=== PATIENT | male | born 1945 | race Caucasian/White ===

== ENCOUNTER 2017-07-07 18:59 | Inpatient (IN) | payer MEDICARE ==
[2017-07-07 19:59] LABS: Basophils % (A) 0 %; Eosinophils # (A) 0.2 k/uL (0-0.7); Eosinophils % (A) 4 %; HCT 48.2 % (39.0-53.0); HGB 16.4 gm/dL (13.0-17.5); Lymphocytes # (A) 1.8 k/uL (1.0-4.8); Lymphocytes % (A) 31 %; MCH 30.2 pg (25.0-35.0); MCV 88.6 fL (80.0-100.0); Mean Platelet Volume 7.1; Monocytes # (A) 0.5 k/uL (0-1.0); Monocytes % (A) 9 %; Neutrophils # (A) 2.9 k/uL (1.3-7.7); Neutrophils % (A) 51 %; Platelet Count 219 k/uL (150-450); RBC 5.44 m/uL (4.30-5.90); RDW 13.8 % (11.5-15.5); WBC 5.8 k/uL (3.8-10.6)
--- NOTE | 2017-07-07 20:12 | ED ---
General Adult HPI - General Chief complaint: Neuro Symptoms/Deficit Stated complaint: slurred speech Time Seen by Provider: 07/07/17 19:20 Source: patient, family, RN notes reviewed, old records reviewed Mode of arrival: ambulatory Limitations: no limitations - History of Present Illness Initial comments: 72-year-old male presents for evaluation of slurred speech. Symptoms began yesterday morning which was approximately 36 hours prior to evaluation. They have been persistent over this time. Patient didn't seek medical attention after being convinced by his family members. He has no history of TIA or stroke. He has history of high blood pressure. He does have a remote history of A. fib but has not had an issue with this in many years. He is not on any anticoagulation. Patient denies focal weakness or numbness. Denies any sensory changes. Denies vision changes. Denies headache. Denies chest pain or shortness of breath. Denies abdominal pain nausea vomiting. Patient has been doing well otherwise. - Related Data Home Medications Medication Instructions Recorded Confirmed Latanoprost Ophth [Xalatan 0.005%] 1 drops LEFT EYE HS 12/28/13 07/07/17 Metoprolol Succinate [Toprol XL] 25 mg PO HS 12/28/13 07/07/17 amLODIPine [Norvasc] 5 mg PO DAILY 12/28/13 07/07/17 Dorzolamide/Timolol/Pf [Cosopt Pf 1 drop LEFT EYE BID 07/07/17 07/07/17 2%/5% Ophth Droperette] Rosuvastatin [Crestor] 10 mg PO HS 07/07/17 07/07/17 Allergies Allergy/AdvReac Type Severity Reaction Status Date / Time venom-honey bee Allergy Severe Anaphylaxis Verified 07/07/17 19:30 [bee venom (honey bee)] Review of Systems ROS Statement: Those systems with pertinent positive or pertinent negative responses have been documented in the HPI. ROS Other: All systems not noted in ROS Statement are negative. Past Medical History Past Medical History: Atrial Fibrillation, GI Bleed, Hypertension Additional Past Medical History / Comment(s): A-fib past hx. Hemorrhoids sometimes bleed History of Any Multi-Drug Resistant Organisms: None Reported Past Surgical History: Hernia Repair Additional Past Surgical History / Comment(s): Lt & Right hernia repair Past Anesthesia/Blood Transfusion Reactions: No Reported Reaction Past Psychological History: No Psychological Hx Reported Smoking Status: Former smoker Past Alcohol Use History: Occasional Past Drug Use History: None Reported General Exam Limitations: no limitations General appearance: alert, in no apparent distress Head exam: Present: atraumatic, normocephalic Eye exam: Present: normal appearance, PERRL, EOMI ENT exam: Present: normal exam Neck exam: Present: normal inspection. Absent: tenderness, meningismus Respiratory exam: Present: normal lung sounds bilaterally. Absent: respiratory distress, wheezes Cardiovascular Exam: Present: regular rate, normal rhythm GI/Abdominal exam: Present: soft. Absent: distended, tenderness Extremities exam: Present: normal inspection, normal capillary refill. Absent: pedal edema Neurological exam: Present: alert, oriented X3, motor sensory deficit (Patient has dysarthria, NIH of 1.) Psychiatric exam: Present: normal affect, normal mood Skin exam: Present: warm, dry, intact. Absent: cyanosis, diaphoretic Course Vital Signs 07/07/17 07/07/17 19:07 20:10 Temperature 98.1 F Pulse Rate 67 70 Respiratory 16 18 Rate Blood Pressure 158/75 171/74 O2 Sat by Pulse 96 96 Oximetry EKG Findings - EKG Comments: EKG Findings:: EKG normal sinus rhythm rate of 67, ND interval 146, QRS duration 88, QTC 429 ST segment elevation. Medical Decision Making - Medical Decision Making 72-year-old male presenting with 36 hours of dysarthria. Patient's neurologic exam is otherwise unremarkable. Head CT is obtained, this is negative for intracranial hemorrhage, there is chronic small vessel ischemia. EKG nonischemic, chest x-ray is negative for focal pneumonia or acute findings. Laboratory studies include a CBC, CMP and troponin are unremarkable. Patient is given an aspirin. He will be admitted for echo, carotid ultrasound, and neurology evaluation. Case discussed with Dr. Leo, who will accept admission. - Lab Data Result diagrams: 07/07/17 19:43 07/07/17 19:43 Lab Results 07/07/17 07/07/17 07/07/17 Range/Units 19:43 19:43 19:43 WBC 5.8 (3.8-10.6) k/uL RBC 5.44 (4.30-5.90) m/uL Hgb 16.4 (13.0-17.5) gm/dL Hct 48.2 (39.0-53.0) % MCV 88.6 (80.0-100.0) fL MCH 30.2 (25.0-35.0) pg MCHC 34.0 (31.0-37.0) g/dL RDW 13.8 (11.5-15.5) % Plt Count 219 (150-450) k/uL Neutrophils % 51 % Lymphocytes % 31 % Monocytes % 9 % Eosinophils % 4 % Basophils % 0 % Neutrophils # 2.9 (1.3-7.7) k/uL Lymphocytes # 1.8 (1.0-4.8) k/uL Monocytes # 0.5 (0-1.0) k/uL Eosinophils # 0.2 (0-0.7) k/uL Basophils # 0.0 (0-0.2) k/uL Manual Slide Review Performed RBC Morphology Normal PT (9.0-12.0) sec INR (<1.2) APTT (22.0-30.0) sec Sodium 141 (137-145) mmol/L Potassium 3.4 L (3.5-5.1) mmol/L Chloride 101 (98-107) mmol/L Carbon Dioxide 25 (22-30) mmol/L Anion Gap 15 mmol/L BUN 19 (9-20) mg/dL Creatinine 0.91 (0.66-1.25) mg/dL Est GFR (CKD-EPI)AfAm >90 (>60 ml/min/1.73 sqM) Est GFR (CKD-EPI)NonAf 85 (>60 ml/min/1.73 sqM) Glucose 98 (74-99) mg/dL Calcium 9.6 (8.4-10.2) mg/dL Total Bilirubin 0.9 (0.2-1.3) mg/dL AST 31 (17-59) U/L ALT 30 (21-72) U/L Alkaline Phosphatase 81 (38-126) U/L Total Creatine Kinase 61 (55-170) U/L CK-MB (CK-2) 0.7 (0.0-2.4) ng/mL CK-MB (CK-2) Rel Index 1.1 Troponin I <0.012 (0.000-0.034) ng/mL Total Protein 7.5 (6.3-8.2) g/dL Albumin 4.6 (3.5-5.0) g/dL 07/07/17 Range/Units 19:43 WBC (3.8-10.6) k/uL RBC (4.30-5.90) m/uL Hgb (13.0-17.5) gm/dL Hct (39.0-53.0) % MCV (80.0-100.0) fL MCH (25.0-35.0) pg MCHC (31.0-37.0) g/dL RDW (11.5-15.5) % Plt Count (150-450) k/uL Neutrophils % % Lymphocytes % % Monocytes % % Eosinophils % % Basophils % % Neutrophils # (1.3-7.7) k/uL Lymphocytes # (1.0-4.8) k/uL Monocytes # (0-1.0) k/uL Eosinophils # (0-0.7) k/uL Basophils # (0-0.2) k/uL Manual Slide Review RBC Morphology PT 9.5 (9.0-12.0) sec INR 1.0 (<1.2) APTT 22.7 (22.0-30.0) sec Sodium (137-145) mmol/L Potassium (3.5-5.1) mmol/L Chloride (98-107) mmol/L Carbon Dioxide (22-30) mmol/L Anion Gap mmol/L BUN (9-20) mg/dL Creatinine (0.66-1.25) mg/dL Est GFR (CKD-EPI)AfAm (>60 ml/min/1.73 sqM) Est GFR (CKD-EPI)NonAf (>60 ml/min/1.73 sqM) Glucose (74-99) mg/dL Calcium (8.4-10.2) mg/dL Total Bilirubin (0.2-1.3) mg/dL AST (17-59) U/L ALT (21-72) U/L Alkaline Phosphatase (38-126) U/L Total Creatine Kinase (55-170) U/L CK-MB (CK-2) (0.0-2.4) ng/mL CK-MB (CK-2) Rel Index Troponin I (0.000-0.034) ng/mL Total Protein (6.3-8.2) g/dL Albumin (3.5-5.0) g/dL Critical Care Time Critical Care Time: Yes Total Critical Care Time: 35 Disposition Clinical Impression: Cerebrovascular accident Disposition: ADMITTED IP TO THIS [facility] Condition: Stable Is patient prescribed a controlled substance at d/c from ED?: No Referrals: Georgette Leo MD [Primary Care Provider] - 1-2 days Decision to Admit Reason: Admit from EC Decision Date: 07/07/17 Decision Time: 21:05
[2017-07-07 20:13] LABS: Partial Thromboplastin Time 22.7 sec (22.0-30.0); Prothrombin Time 9.5 sec (9.0-12.0)
[2017-07-07 20:16] LABS: ALT 30 U/L (21-72); AST 31 U/L (17-59); Albumin 4.6 g/dL (3.5-5.0); Alkaline Phosphatase 81 U/L (38-126); Anion Gap 15 mmol/L; Blood Urea Nitrogen 19 mg/dL (9-20); Calcium 9.6 mg/dL (8.4-10.2); Carbon Dioxide 25 mmol/L (22-30); Chloride 101 mmol/L (98-107); Glucose 98 mg/dL (74-99); Potassium 3.4 mmol/L (3.5-5.1); Sodium 141 mmol/L (137-145); Total Bilirubin 0.9 mg/dL (0.2-1.3); Total Protein 7.5 g/dL (6.3-8.2)
--- NOTE | 2017-07-07 20:16 | CT ---
EXAMINATION TYPE: CT brain wo con DATE OF EXAM: 07/07/2017 COMPARISON: NONE HISTORY: Neuro deficits. CT DLP: 1055.7 mGycm Automated exposure control for dose reduction was used. TECHNIQUE: CT scan of the head is performed without contrast. FINDINGS: There is no acute intracranial hemorrhage or midline shift identified. There is diffuse v entricular and sulcal prominence consistent with diffuse age-related cerebral atrophy. There is low- attenuation in the periventricular white matter consistent with chronic small vessel ischemic change. The globes are intact. There is moderate mucosal thickening within the ethmoid sinuses and severe m ucosal thickening within the left frontal sinuses. The remaining visualized paranasal sinuses and mas toid air cells are well aerated. IMPRESSION: 1. No acute intracranial hemorrhage or midline shift. 2. Severe left frontal and moderate ethmoid paranasal sinus disease..
--- NOTE | 2017-07-07 20:16 | XR ---
EXAMINATION TYPE: XR chest 2V DATE OF EXAM: 07/07/2017 COMPARISON: 09/20/2009 HISTORY: Altered mental status TECHNIQUE: Frontal and lateral views of the chest are obtained. FINDINGS: There is no focal air space opacity, pleural effusion, or pneumothorax seen. The cardiac silhouette size is within normal limits. The osseous structures are intact. Mild multilevel degener ative changes of the thoracic spine are noted. IMPRESSION: No acute cardiopulmonary process.
[2017-07-07] MEDS ORDERED: ASPIRIN 325 MG TAB PO STA (20:17)
[2017-07-07] MEDS ORDERED: POTASSIUM CHLORIDE ER 20 MEQ TAB.ER PO STA (20:18)
[2017-07-07 20:30] LABS: Creatine Kinase 61 U/L (55-170)
[2017-07-07 20:43] LABS: Creatine Kinase MB 0.7 ng/mL (0.0-2.4); Troponin I <0.012 ng/mL (0.000-0.034)
[2017-07-07] MEDS: SODIUM CHLORIDE 0.9% 1,000 ML IV SCH (21:17)
[2017-07-08] MEDS ORDERED: ATORVASTATIN 20 MG TAB PO SCH (00:15)
[2017-07-08] MEDS: METOPROLOL SUCCINATE (ER) 25 MG TAB.ER.24H PO SCH ×2 (01:33→20:07)
[2017-07-08 07:30] LABS: Anion Gap 13 mmol/L; Blood Urea Nitrogen 15 mg/dL (9-20); Calcium 8.8 mg/dL (8.4-10.2); Carbon Dioxide 24 mmol/L (22-30); Chloride 105 mmol/L (98-107); Cholesterol 184 mg/dL (<200); Glucose 100 mg/dL (74-99); HDL Cholesterol 64 mg/dL (40-60); LDL Cholesterol,Calculated 109 mg/dL (0-99); Potassium 4.4 mmol/L (3.5-5.1); Sodium 142 mmol/L (137-145); Triglycerides 55 mg/dL (<150)
--- NOTE | 2017-07-08 07:47 | US ---
EXAMINATION TYPE: US carotid duplex BILAT DATE OF EXAM: 07/08/2017 COMPARISON: NONE CLINICAL HISTORY: Stenosis. Slurred speech EXAM MEASUREMENTS: RIGHT: Peak Systolic Velocity (PSV) cm/sec ----- Right CCA: 84.2 ----- Right ICA: 108.9 ----- Right ECA: 145.6 ICA/CCA ratio: 1.3 RIGHT: End Diastole cm/sec ----- Right CCA: 21.7 ----- Right ICA: 33.3 ----- Right ECA: 15.6 LEFT: Peak Systolic Velocity (PSV) cm/sec ----- Left CCA: 83.8 ----- Left ICA: 90.5 ----- Left ECA: 96.8 ICA/CCA ratio: 1.1 LEFT: End Diastole cm/sec ----- Left CCA: 14.4 ----- Left ICA: 24.5 ----- Left ECA: 12.8 VERTEBRALS (direction of flow): Right Vertebral: Antegrade Left Vertebral: Antegrade Rhythm: Normal Grayscale images show no significant focal plaque at carotid bulb level bilaterally. Velocity measure ments and ratios remain within normal limits in visualized portion of both internal carotid arteries. IMPRESSION: No hemodynamically significant stenosis is seen in either internal carotid artery.
[2017-07-08] MEDS: SODIUM CHLORIDE 0.9% 1,000 ML IV SCH (08:38)
[2017-07-08] MEDS: amLODIPine 5 MG TAB PO SCH (08:38)
[2017-07-08] MEDS: DORZOLAMIDE-TIMOLOL 2-0.5% DROPS 10 ML BTL LEFT EYE SCH ×2 (08:39→20:05)
[2017-07-08] MEDS: ASPIRIN 325 MG TAB PO SCH (08:40)
--- NOTE | 2017-07-08 11:39 | ECHOF ---
Referral Reason:Thrombus MEASUREMENTS -------- HEIGHT: 177.8 cm WEIGHT: 77.1 kg BP: 137/77 RVIDd: 3.4 cm (< 3.3) IVSd: 0.9 cm (0.6 - 1.1) LVIDd: 4.2 cm (3.9 - 5.3) LVPWd: 1.1 cm (0.6 - 1.1) IVSs: 1.7 cm LVIDs: 2.7 cm LVPWs: 1.6 cm LA Diam: 3.6 cm (2.7 - 3.8) LAESV Index (A-L): 29.81 ml/m Ao Diam: 3.7 cm (2.0 - 3.7) AV Cusp: 2.0 cm (1.5 - 2.6) MV EXCURSION: 17.896 mm (> 18.000) MV EF SLOPE: 90 mm/s (70 - 150) EPSS: 0.5 cm MV E Diego: 0.92 m/s MV DecT: 153 ms MV A Diego: 0.71 m/s MV E/A Ratio: 1.30 RAP: 5.00 mmHg RVSP: 31.59 mmHg FINDINGS -------- Sinus rhythm. This was a technically good study. The left ventricular size is normal. Left ventricular wall thickness is normal. Overall left vent ricular systolic function is normal with, an EF between 60 - 65 %. The right ventricle is mildly enlarged. LA is midly dilated 29-33ml/m2. The right atrium is normal in size. The aortic valve is trileaflet and appears structurally normal. The mitral valve is normal. Mild tricuspid regurgitation present. Right ventricular systolic pressure is normal at < 35 mmHg. Trace/mild (physiologic) pulmonic regurgitation. The aortic root size is normal. Normal inferior vena cava with normal inspiratory collapse consistent with estimated right atrial pre ssure of 5 mmHg. There is no pericardial effusion. CONCLUSIONS -------- 1. Sinus rhythm. 2. This was a technically good study. 3. The left ventricular size is normal. 4. Left ventricular wall thickness is normal. 5. Overall left ventricular systolic function is normal with, an EF between 60 - 65 %. 6. The right ventricle is mildly enlarged. 7. LA is midly dilated 29-33ml/m2. 8. The right atrium is normal in size. 9. The aortic valve is trileaflet and appears structurally normal. 10. The mitral valve is normal. 11. Mild tricuspid regurgitation present. 12. Right ventricular systolic pressure is normal at < 35 mmHg. 13. Trace/mild (physiologic) pulmonic regurgitation. 14. The aortic root size is normal. 15. Normal inferior vena cava with normal inspiratory collapse consistent with estimated right atrial pressure of 5 mmHg. 16. There is no pericardial effusion. [employer]: Joseline Short RDCS
--- NOTE | 2017-07-08 13:20 | P.CNNES ---
History of Present Illness Consult date: 07/08/17 Reason for Consult: Patient admitted with speech impairment and possible TIA. History of Present Illness: This patient is a 72-year-old right-handed white male who was admitted to [facility] yesterday with symptoms of speech impairment. Apparently Tuesday of this past week he awoke and noticed that he was having difficulty with his speech and language. He describes it as a word finding difficulty. 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 Apparently on morning when he awoke he still noticed difficulty with his speech and language. He was having some features suggesting expressive aphasia. His family finally convinced him to go to the emergency room for further evaluation. His symptoms had been present for at least 36 hours prior to his evaluation in the ER and he was not a candidate for TPA. The patient was examined today in the emergency room as he is awaiting placement to [facility]. On further questioning the patient states his symptoms of speech impairment have significantly improved today. His daughter who was at bedside however notices he still is not 100% in terms of his speech prior to this event. The patient was sent for a computed tomography scan of the brain yesterday which revealed no acute intracranial hemorrhage or midline shift. There was evidence of left frontal sinusitis disease. The patient denies any previous history of TIA or stroke. He does not take aspirin on any regular basis as he has history of bleeding hemorrhoids. He has had difficulty with aspirin in the past. He does have a history of atrial fibrillation which occurred about 10-15 years ago. He was placed on Cardizem and apparently converted to normal sinus rhythm. It is unclear whether his recent episode may have been related to paroxysmal atrial fibrillation. He is currently on cardiac monitoring. So far he has been in normal sinus rhythm. The patient also has risk factor of hyperlipidemia. His total cholesterol has been elevated at 280. He was just recently started on Crestor about 6 weeks ago. Repeat lipid profile performed today reveals his total cholesterol to be 184 today. The patient states he has been in otherwise good health. He does follow with his primary care physician every 3-4 months. He has no recent history of smoking. The patient feels his language and speech is returned to normal however the daughter who was at bedside still feels he is showing some hesitation. His clinical history is suggesting possibility of left hemispheric TIA versus stroke. On his neurological examination in the ER he is noted to have slight dysmetria on finger-nose testing with his left hand. We have recommended the patient to be admitted to hospital for a complete stroke evaluation. We would recommend an MRI of the brain to be done for further assessment of possible acute left hemispheric stroke. The patient would like to hold off on aspirin as he does have history of bleeding hemorrhoids in the past. We will give further recommendations pending his MRI results. The patient denied any symptoms of motor weakness during this recent episode. He did not have any recent falls reported. He denies any headaches. He is now been admitted to the hospital and we are waiting bed assignment on this selective care floor. We have discussed all of his neurological findings in detail with the patient. He clearly understands our current diagnosis and treatment plan. We will have him admitted and we will continue close follow- up. Neurology is now been consulted for further evaluation and recommendations. Review of Systems Constitutional: Denies chills, Denies fever Eyes: denies blurred vision, denies pain Ears, nose, mouth and throat: Denies headache, Denies sore throat Cardiovascular: Denies chest pain, Denies shortness of breath Respiratory: Denies cough Gastrointestinal: Denies abdominal pain, Denies diarrhea, Denies nausea, Denies vomiting Musculoskeletal: Denies myalgias Integumentary: Denies pruritus, Denies rash Neurological: Reports aphasia, Reports change in speech, Denies numbness, Denies weakness Psychiatric: Denies anxiety, Denies depression Endocrine: Denies fatigue, Denies weight change Past Medical History Past Medical History: Atrial Fibrillation, Cancer, GI Bleed, Hyperlipidemia, Hypertension Additional Past Medical History / Comment(s): A-fib past hx,glaucoma, cataracts. 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 Hemorrhoids sometimes bleed History of Any Multi-Drug Resistant Organisms: None Reported Past Surgical History: Hernia Repair Additional Past Surgical History / Comment(s): Lt & Right inguinal hernia repair , colonoscpy/benign polys removed, mary laser eye sx for glaucoma, skin cancer removed from neck Past Anesthesia/Blood Transfusion Reactions: No Reported Reaction Smoking Status: Former smoker - Past Family History Father Family Medical History: Myocardial Infarction ([place]) Mother Additional Family Medical History / Comment(s): from old age Medications and Allergies Home Medications Medication Instructions Recorded Confirmed Type Latanoprost Ophth [Xalatan 0.005%] 1 drops LEFT EYE HS 12/28/13 07/07/17 History Metoprolol Succinate [Toprol XL] 25 mg PO HS 12/28/13 07/07/17 History amLODIPine [Norvasc] 5 mg PO DAILY 12/28/13 07/07/17 History Dorzolamide/Timolol/Pf [Cosopt Pf 1 drop LEFT EYE BID 07/07/17 07/07/17 History 2%/5% Ophth Droperette] Rosuvastatin [Crestor] 10 mg PO HS 07/07/17 07/07/17 History Allergies Allergy/AdvReac Type Severity Reaction Status Date / Time venom-honey bee Allergy Severe Anaphylaxis Verified 07/07/17 19:30 [bee venom (honey bee)] Physical Examination - Vital Signs Vital Signs: Vital Signs Temp Pulse Pulse Resp BP BP Pulse Ox 07/08/17 12:00 98.2 F 86 16 170/94 97 07/08/17 07:58 98.5 F 73 16 155/77 98 07/08/17 04:01 97.3 F L 89 16 133/77 97 07/08/17 00:01 81 07/08/17 00:00 97.1 F L 81 16 147/84 98 07/07/17 23:01 84 16 148/76 100 07/07/17 22:20 98.3 F 70 16 119/67 98 07/07/17 21:20 98.3 F 64 16 131/73 98 07/07/17 21:08 73 18 137/84 97 07/07/17 20:38 62 18 129/77 97 07/07/17 20:10 70 18 171/74 96 07/07/17 19:07 98.1 F 67 16 158/75 96 Intake and Output 07/07/17 07/08/17 07/08/17 22:59 06:59 14:59 Intake Total 200 1040 Output Total 600 Balance 200 440 Intake: Intake, IV Titration 200 800 Amount Sodium Chloride 0.9% 1, 200 800 000 ml @ 100 mls/hr IV . Q10H [facility] Rx#:[id number] Oral 240 Output: Urine 600 Other: Voiding Method Toilet Urinal Weight 77.111 kg - Constitutional General appearance: average body habitus, cooperative - EENT EENT: PERRL, mucous membranes moist - Respiratory Respiratory: lungs clear, normal breath sounds - Cardiovascular Cardiovascular: regular rate, normal S1, normal S2 Extremities: no peripheral edema bilaterally - Gastrointestinal Gastrointestinal: normoactive bowel sounds - Integumentary Integumentary: normal - Neurologic Cranial nerve examination: PERRL, EOMI, VFF, V1/V2/V3 grossly intact, face symmetric, tongue midline, intact gag reflex, intact corneal reflex, normal palatal elevation Speech examination: intact Sensorimotor examination: intact Detailed motor examination: grossly full strength in all extremities Motor examination - right side: 4/5: biceps, triceps, wrist flexion, wrist extension, sew out operator, hip flexors, knee extensors, dorsiflexion, toe extension (EHL) , plantarflexion Motor examination - left side: 4/5: biceps, triceps, wrist flexion, wrist extension, sew out operator, hip flexors, knee extensors, dorsiflexion, toe extension (EHL) , plantarflexion Detailed sensory examination: intact Reflex and gait examination: intact Reflexes: 1+: ankle, bicep, knee, tricep - Musculoskeletal Musculoskeletal: no pain - Psychiatric Psychiatric: mood/affect appropriate, cooperative Results - Laboratory Findings CBC and BMP: 07/07/17 19:43 07/08/17 06:48 Abnormal Lab Findings: Abnormal Labs 07/07/17 07/08/17 19:43 06:48 Potassium 3.4 L Glucose 100 H LDL Cholesterol, Calc 109 H HDL Cholesterol 64 H Assessment and Plan (1) TIA (transient ischemic attack) Current Visit: Yes Status: Acute Code(s): G45.9 - TRANSIENT CEREBRAL ISCHEMIC ATTACK, UNSPECIFIED SNOMED Code(s): 244066920 (2) Expressive aphasia Current Visit: Yes Status: Acute Code(s): R47.01 - APHASIA SNOMED Code(s) : 693951244 (3) Hyperlipidemia Current Visit: Yes Status: Acute Code(s): E78.5 - HYPERLIPIDEMIA, UNSPECIFIED SNOMED Code(s): 81297364 (4) Hypertension Current Visit: Yes Status: Acute Code(s): I10 - ESSENTIAL (PRIMARY) HYPERTENSION SNOMED Code(s): 59916315 Plan: This patient is a pleasant 72-year-old right-handed white male who was admitted to hospital yesterday for symptoms of slurred speech and word finding difficulties. He was symptomatic for over 36 hours before presenting to the emergency room yesterday. He was seen in the ER by Dr. Romo. He underwent a computed tomography scan of the brain which was reported negative for any evidence of acute stroke or hemorrhage. Neurology was consulted for further evaluation. Patient was seen today in the emergency room as he is awaiting room placement on the [facility] medical floor. We reviewed the results of his CAT scan with him in detail. His clinical history suggests possibility of left hemispheric TIA. He had a bout of expressive aphasia which has subsequently resolved. We have recommended he undergo a complete stroke evaluation including carotid Doppler ultrasound and echocardiogram. Carotid Doppler study was completed today and fails to reveal any significant carotid artery stenosis. Echocardiogram results are pending. We have recommended the patient to undergo an MRI of the brain for further evaluation to rule out acute stroke. The patient would like to hold off on aspirin at this time for secondary stroke prevention as he does have a history of bleeding hemorrhoids. We will await the results of his MRI of the brain and will reconsider further treatment pending the results. The patient's neurological examination otherwise is nonfocal. He does show slight dysmetria in the left finger nose testing. We will continue close monitoring of this patient during this admission. We'll await his MRI results and we'll give further recommendations at that time. Case was discussed at length with the patient. 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 His overall prognosis remains guarded. We will continue close neurological follow-up for this patient during this admission. Time with Patient: Greater than 30
--- NOTE | 2017-07-08 14:11 | P.HPIM ---
History of Present Illness H&P Date: 07/08/17 Chief Complaint: TIA/CVA. This is a 72-year-old male one of my patient with a previous medical history significant for hypertension and hypertensive cardio vascular disease, hyperlipidemia, patient was seen in my office about 6 weeks ago and it was recommended that time to go on the Crestor 10 mg orally once every day because of his hyperlipidemia and his total cholesterol was greater than 280 as a matter fact his repeated cholesterol at this presentation was 184 with LDL cholesterol of 108 and HDL cholesterol of 64 and a triglyceride of 55 which has improved quite a bit, patient presented to the emergency department at [facility] yesterday because of 2 day history of the dysarthria and finding the correct word that started on Tuesday and lasted all day Tuesday woke up on and he felt that he is getting worse with his daughter convinced him to come to the emergency department at [facility] where he had a computed tomography scan of the brain that showed no evidence of significant stroke or bleed or midline shift did show some sinus disease, and the patient was given aspirin 325 mg orally once every day, underwent ultrasound of the carotid and echocardiogram which failed to reveal any acute of normalities, patient reported that he had an episode of atrial fibrillation many years ago for which she was placed on Cardizem and he was converted sinus rhythm and he was not taking any anticoagulation at that point because he had remained in sinus rhythm. Patient was placed on a monitor his currently in sinus rhythm without any acute abnormalities, patient will be admitted to the hospital for acute stroke evaluation mainly TIA of the left middle cerebral artery, neurology has seen the patient over the recommended MRI of the brain with and without CAD, patient will be seen and evaluated by physical therapy as well as by speech therapy as well his symptoms has resolved completely at this point in time I have recommended for the patient to increase his Crestor to 20 mg orally once every day and continue aspirin 325 mg orally indefinitely and the patient will need to have a 30 day event monitor to rule out any paroxysmal atrial fibrillation and if the MRI is positive he may need to go for a transesophageal echocardiogram for evaluation of PFO versus any thrombus. Review of Systems Constitutional: Denies anorexia, Denies chronic headaches, Denies weakness, Denies weight gain Eyes: denies blurred vision, denies bulging eye, denies decreased vision Ears: deny: decreased hearing Ears, nose, mouth and throat: Reports as per HPI, Denies dysphagia, Denies neck lump Cardiovascular: Reports high blood pressure, Denies chest pain, Denies decreased exercise tolerance, Denies dyspnea on exertion, Denies paroxysmal nocturnal dyspnea, Denies phlebitis, Denies rapid heart beat, Denies shortness of breath, Denies syncope Respiratory: Denies congestion, Denies cough with sputum, Denies home oxygen, Denies sleep apnea, Denies snoring, Denies wheezing Gastrointestinal: Denies abdominal pain, Denies BRBPR, Denies excessive gas, Denies heartburn, Denies melena, Denies nausea, Denies vomiting Genitourinary: Denies dysuria, Denies nocturia, Denies polyuria Musculoskeletal: Reports as per HPI Musculoskeletal: absent: ankle pain, ankle stiffness, ankle swelling, elbow pain , elbow stiffness, elbow swelling, foot pain, foot stiffness, foot swelling, hand pain, hand stiffness, hand swelling, hip pain, hip stiffness, hip swelling , knee pain, knee stiffness, knee swelling, shoulder pain, shoulder stiffness, shoulder swelling, wrist pain, wrist stiffness, wrist swelling Integumentary: Denies pruritus, Denies rash Neurological: Reports as per HPI Psychiatric: Denies anxiety, Denies depression Endocrine: Denies fatigue, Denies weight change Past Medical History Past Medical History: Atrial Fibrillation, Cancer, GI Bleed, Hyperlipidemia, Hypertension, Osteoarthritis (OA), Prostate Disorder Additional Past Medical History / Comment(s): A-fib past hx,glaucoma, cataracts. 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 Hemorrhoids sometimes bleed History of Any Multi-Drug Resistant Organisms: None Reported Past Surgical History: Hernia Repair Additional Past Surgical History / Comment(s): Lt & Right inguinal hernia repair , colonoscpy/benign polys removed, mary laser eye sx for glaucoma, skin cancer removed from neck Past Anesthesia/Blood Transfusion Reactions: No Reported Reaction Smoking Status: Former smoker (patient started smoking at the age of 17 and he quit at the age of 21 he smoked less than a pack every day and he drinks one mixed drink on a daily basis.) Past Alcohol Use History: Daily Past Drug Use History: None Reported - Past Family History Father Family Medical History: Myocardial Infarction (MA) (father at age 68 from MA. And his first MA was at the age of 58.) Mother Family Medical History: No Reported History (mother at age 91 from old age. ) Additional Family Medical History / Comment(s): from old age Sister(s) Family Medical History: Cancer (patient had 2 sisters one from leukemia about 3 years ago and one is okay.) Daughter(s) Family Medical History: No Reported History (patient has 2 daughters one with a spontaneous pneumothorax and the other one healthy.) Medications and Allergies Home Medications Medication Instructions Recorded Confirmed Type Latanoprost Ophth [Xalatan 0.005%] 1 drops LEFT EYE HS 12/28/13 07/07/17 History Metoprolol Succinate [Toprol XL] 25 mg PO HS 12/28/13 07/07/17 History amLODIPine [Norvasc] 5 mg PO DAILY 12/28/13 07/07/17 History Dorzolamide/Timolol/Pf [Cosopt Pf 1 drop LEFT EYE BID 07/07/17 07/07/17 History 2%/5% Ophth Droperette] Rosuvastatin [Crestor] 10 mg PO HS 07/07/17 07/07/17 History Allergies Allergy/AdvReac Type Severity Reaction Status Date / Time venom-honey bee Allergy Severe Anaphylaxis Verified 07/07/17 19:30 [bee venom (honey bee)] Physical Exam Vitals: Vital Signs Temp Pulse Pulse Resp BP BP Pulse Ox 07/08/17 12:00 98.2 F 86 16 170/94 97 07/08/17 07:58 98.5 F 73 16 155/77 98 07/08/17 04:01 97.3 F L 89 16 133/77 97 07/08/17 00:01 81 07/08/17 00:00 97.1 F L 81 16 147/84 98 07/07/17 23:01 84 16 148/76 100 07/07/17 22:20 98.3 F 70 16 119/67 98 07/07/17 21:20 98.3 F 64 16 131/73 98 07/07/17 21:08 73 18 137/84 97 07/07/17 20:38 62 18 129/77 97 07/07/17 20:10 70 18 171/74 96 07/07/17 19:07 98.1 F 67 16 158/75 96 Intake and Output 07/07/17 07/08/17 07/08/17 22:59 06:59 14:59 Intake Total 200 1040 Output Total 600 Balance 200 440 Intake: Intake, IV Titration 200 800 Amount Sodium Chloride 0.9% 1, 200 800 000 ml @ 100 mls/hr IV . Q10H [facility] Rx#:[id number] Oral 240 Output: Urine 600 Other: Voiding Method Toilet Urinal Weight 77.111 kg - Constitutional General appearance: average body habitus, no acute distress - EENT Eyes: anicteric sclerae, EOMI, PERRLA, no ptosis, no scleral icterus, no normal appearance (mild right-sided facial weakness.) Ears: bilateral: normal - Neck Neck: no lymphadenopathy, normal ROM, no rigidity, no stridor, no thyromegaly Carotids: bilateral: upstroke normal Thyroid: bilateral: normal size - Respiratory Respiratory: bilateral: diminished, negative: dullness, rales, rhonchi, wheezing , prolonged expiration - Cardiovascular Rhythm: regular Heart sounds: normal: S1, S2 Abnormal Heart Sounds: systolic murmur, no rub, no S3 Gallop, no S4 Gallop, no click - Gastrointestinal General gastrointestinal: normal bowel sounds, soft, no splenomegaly, no tenderness, no umbilical hernia, no ventral hernia - Integumentary Integumentary: normal, normal turgor - Musculoskeletal Musculoskeletal: strength equal bilaterally (Babinski on the right side is abnormal, deep tendon or flexes in the right is hyper without any clonus, minimal right-sided facial droop.) - Psychiatric Psychiatric: A&O x's 3, appropriate affect, intact judgment & insight Results CBC & Chem 7: 07/07/17 19:43 07/08/17 06:48 Labs: Abnormal Lab Results - Last 24 Hours (Table) 07/07/17 07/08/17 Range/Units 19:43 06:48 Potassium 3.4 L (3.5-5.1) mmol/L Glucose 100 H (74-99) mg/dL LDL Cholesterol, Calc 109 H (0-99) mg/dL HDL Cholesterol 64 H (40-60) mg/dL Thrombosis Risk Factor Assmnt - DVT/VTE Prophylaxis DVT/VTE Prophylaxis: Pharmacologic Prophylaxis ordered, Mechanical Prophylaxis ordered - Choose All That Apply Other Risk Factors: Yes Each Risk Factor Represents 2 Points: Age 61-74 years Thrombosis Risk Factor Assessment Total Risk Factor Score: 2 Thrombosis Risk Factor Assessment Level: Low Risk Assessment and Plan Assessment: Assessment and plan: 1. Acute CVA and the discretion of the left middle cerebral artery with mild right-sided facial weakness with dysarthria. Echocardiogram and ultrasound of the carotids were reviewed, MRI of the brain was ordered, continue aspirin 325 mg orally once every day, continue Lipitor 40 mg orally once every day, homocysteine level was ordered, patient will be seen and evaluated by physical therapy, speech therapy, patient will need to have an event monitor for 30 days , patient will need to have transesophageal echocardiogram for evaluation of PFO and to check the aortic arch. 2. Hypertension and hypertensive cardiovascular disease. Continue metoprolol 25 mg orally twice every day and amlodipine 10 mg orally once every day. 3. Hyperlipidemia. Continue patient on Lipitor 40 mg orally once every day. 4. Chronic alcohol use and dependence patient was counseled about abstinence from alcohol. 5. History of atrial fibrillation in the past. 30 day event monitor as an outpatient keep the patient on monitor for the next 24 hours, await the result of MRI of the brain. 6. History of basal cell cancer. Stable at this point in time. 7. History of GI bleed due to hemorrhoids. Stable at this time. 8. History of diverticulosis. Stable at this point in time. 9. DVT prophylaxis. Lovenox 40 mg subcutaneously every 24 hours along with bilateral SCDs. 10. GI prophylaxis. Protonix 40 mg orally once every day. 11. Patient is a full code. 12. Admit to inpatient. Estimate a length of stay 2 midnights.
[2017-07-08] MEDS ORDERED: LATANOPROST 0.005% OPHTH DROPS 2.5 ML BTL LEFT EYE SCH (21:00)
[2017-07-08] MEDS ORDERED: ATORVASTATIN 40 MG TAB PO SCH (21:00)
[2017-07-09 06:54] LABS: Basophils % (A) 0 %; Eosinophils # (A) 0.2 k/uL (0-0.7); Eosinophils % (A) 3 %; HCT 46.6 % (39.0-53.0); HGB 15.3 gm/dL (13.0-17.5); Lymphocytes # (A) 1.4 k/uL (1.0-4.8); Lymphocytes % (A) 25 %; MCH 29.7 pg (25.0-35.0); MCHC 32.8 g/dL (31.0-37.0); MCV 90.6 fL (80.0-100.0); Mean Platelet Volume 7.3; Monocytes # (A) 0.5 k/uL (0-1.0); Monocytes % (A) 10 %; Neutrophils # (A) 3.2 k/uL (1.3-7.7); Neutrophils % (A) 58 %; Platelet Count 214 k/uL (150-450); RBC 5.14 m/uL (4.30-5.90); RDW 13.8 % (11.5-15.5); WBC 5.6 k/uL (3.8-10.6)
[2017-07-09 07:25] LABS: ALT 28 U/L (21-72); AST 24 U/L (17-59); Albumin 3.7 g/dL (3.5-5.0); Alkaline Phosphatase 69 U/L (38-126); Anion Gap 11 mmol/L; Blood Urea Nitrogen 15 mg/dL (9-20); Carbon Dioxide 26 mmol/L (22-30); Chloride 104 mmol/L (98-107); Glucose 101 mg/dL (74-99); Potassium 4.3 mmol/L (3.5-5.1); Sodium 141 mmol/L (137-145); Total Bilirubin 1.2 mg/dL (0.2-1.3); Total Protein 6.2 g/dL (6.3-8.2)
[2017-07-09] MEDS ORDERED: PANTOPRAZOLE 40 MG TABLET PO SCH (07:30)
[2017-07-09] MEDS: DORZOLAMIDE-TIMOLOL 2-0.5% DROPS 10 ML BTL LEFT EYE SCH (08:09)
[2017-07-09] MEDS: amLODIPine 5 MG TAB PO SCH (08:09)
[2017-07-09] MEDS: ASPIRIN 325 MG TAB PO SCH (08:09)
[2017-07-09] MEDS ORDERED: ENOXAPARIN 40 MG/0.4 ML SYRINGE SQ SCH (09:00)
[2017-07-09 09:41] VITALS: TEMP 97.8
--- NOTE | 2017-07-09 10:06 | P.DS ---
Providers Date of admission: 07/07/17 21:05 Attending physician: Georgette Leo Consults: 07/07/17 21:02 Consult Physician Routine Consulting Provider: Elaine Hanson Consult Reason/Comments: CVA Do you want consulting provider notified?: Yes Primary care physician: Georgette Leo [facility] Course: This is a 72-year-old male one of my patient with a previous medical history significant for hypertension and hypertensive cardio vascular disease, hyperlipidemia, patient was seen in my office about 6 weeks ago and it was recommended that time to go on the Crestor 10 mg orally once every day because of his hyperlipidemia and his total cholesterol was greater than 280 as a matter fact his repeated cholesterol at this presentation was 184 with LDL cholesterol of 108 and HDL cholesterol of 64 and a triglyceride of 55 which has improved quite a bit, patient presented to the emergency department at [facility] yesterday because of 2 day history of the dysarthria and finding the correct word that started on Tuesday and lasted all day Tuesday woke up on and he felt that he is getting worse with his daughter convinced him to come to the emergency department at [facility] where he had a computed tomography scan of the brain that showed no evidence of significant stroke or bleed or midline shift did show some sinus disease, and the patient was given aspirin 325 mg orally once every day, underwent ultrasound of the carotid and echocardiogram which failed to reveal any acute of normalities, patient reported that he had an episode of atrial fibrillation many years ago for which she was placed on Cardizem and he was converted sinus rhythm and he was not taking any anticoagulation at that point because he had remained in sinus rhythm. Patient was placed on a monitor his currently in sinus rhythm without any acute abnormalities, patient will be admitted to the hospital for acute stroke evaluation mainly TIA of the left middle cerebral artery, neurology has seen the patient over the recommended MRI of the brain with and without CAD, patient will be seen and evaluated by physical therapy as well as by speech therapy as well his symptoms has resolved completely at this point in time I have recommended for the patient to increase his Crestor to 20 mg orally once every day and continue aspirin 325 mg orally indefinitely and the patient will need to have a 30 day event monitor to rule out any paroxysmal atrial fibrillation and if the MRI is positive he may need to go for a transesophageal echocardiogram for evaluation of PFO versus any thrombus. 07/09: Patient was evaluated this morning. Dysarthria has improved, although he states he's still having slight trouble finding word. He denies any weakness, numbness, tingling, or headache. Patient underwent echocardiogram shows ejection fraction between 60-65 % and mild tricuspid regurgitation. Carotid Doppler showed no significant stenosis in either internal carotid artery. Patient is currently awaiting MRI, if clear patient will be discharged home, will need to follow-up with cardiology to either have loop monitor or 30 day event monitor placed. He'll start 325 mg enteric-coated aspirin at home, will watch for signs of bleeding due to his history of hemorrhoids. Discharge diagnoses 1. Acute CVA and the discretion of the left middle cerebral artery with mild right-sided facial weakness with dysarthria. Patient will need to have an event monitor for 30 days. 2. Hypertension and hypertensive cardiovascular disease. 3. Hyperlipidemia. 4. Chronic alcohol use and dependence. 5. History of atrial fibrillation in the past. 6. History of basal cell cancer. 7. History of GI bleed due to hemorrhoids. 8. History of diverticulosis. The above impression and plan of care have been discussed and directed by signing physician. Anna Voss nurse practitioner acting as scribe for signing physician. Patient Condition at Discharge: Good Plan - Discharge Summary Discharge Rx Participant: No New Discharge Prescriptions: New Aspirin 325 mg PO DAILY tab Continue Metoprolol Succinate [Toprol XL] 25 mg PO HS Latanoprost Ophth [Xalatan 0.005%] 1 drops LEFT EYE HS Dorzolamide/Timolol/Pf [Cosopt Pf 2%/5% Ophth Droperette] 1 drop LEFT EYE BID Rosuvastatin [Crestor] 10 mg PO HS Changed amLODIPine [Norvasc] 10 mg PO DAILY #0 Discharge Medication List Latanoprost Ophth [Xalatan 0.005%] 1 drops LEFT EYE HS 12/28/13 [History] Metoprolol Succinate [Toprol XL] 25 mg PO HS 12/28/13 [History] Dorzolamide/Timolol/Pf [Cosopt Pf 2%/5% Ophth Droperette] 1 drop LEFT EYE BID [History] Rosuvastatin [Crestor] 10 mg PO HS 07/07/17 [History] Aspirin 325 mg PO DAILY tab 07/09/17 [Rx] amLODIPine [Norvasc] 10 mg PO DAILY #0 07/09/17 [Rx] Follow up Appointment(s)/Referral(s): Kathy Hanson MD [STAFF PHYSICIAN] - 1 Week Georgette Leo MD [Primary Care Provider] - 1-2 days Discharge Disposition: HOME SELF-CARE
--- NOTE | 2017-07-09 12:23 | MR ---
EXAMINATION TYPE: MR brain wo/w con DATE OF EXAM: 07/09/2017 12:12 PM COMPARISON: Previous CT scan of the brain dated 07/07/2017. HISTORY: Slurred speech TECHNIQUE: Multiplanar, multiecho imaging of the brain was obtained with and without intravenous adm inistration of 7.5 mL intravenous Gadavist. FINDINGS: There is sinus mucosal disease involving the frontal sinuses, ethmoid sinuses and left maxi llary sinus. Midline structures are unremarkable. There is a normal craniocervical junction. Echoplanar diffusion imaging demonstrates restricted diffusion in the left side of the eliu. There is corresponding high signal on the T2 and FLAIR datasets in this region suggesting a recent infarct. D iffusion imaging is otherwise normal. There are normal vascular flow voids. The orbits are unremarkable. There is no evidence of a CP angle mass lesion. There is punctate abnormalities in the FLAIR dataset in both cerebral hemispheres compatible with sma ll vessel disease. Other forms of demyelination are not excluded. Following intravenous administration of gadolinium, I do not see evidence of abnormal enhancement. IMPRESSION: 1. EVIDENCE OF AN SUBACUTE INFARCT IN THE LEFT SIDE OF THE ELIU. 2. PUNCTATE PERIVENTRICULAR WHITE MATTER CHANGE COMPATIBLE SMALL VESSEL DISEASE. 3. FRONTAL, ETHMOIDAL AND LEFT MAXILLARY SINUS MUCOSAL DISEASE.
[2017-07-09 12:54] VITALS: BP 155/84; PULSE 69; RESP 15
--- NOTE | 2017-07-09 15:38 | P.PN ---
Subjective Progress Note Date: 07/09/17 This patient is a pleasant 72-year-old right-handed white male who was seen yesterday neurology consultation for evaluation of episode of dysarthria and mild word finding difficulties. His symptoms persisted for over 86 hours and he decided to come to the emergency room yesterday where he was evaluated. He underwent an initial computed tomography scan of the brain which was negative for any acute findings. He was advised admission to the hospital and to have an MRI of the brain. Patient underwent laboratory testing to check his lipid profile. His total serum cholesterol came back today at 184. He was started on Crestor about 6 weeks ago and prior to that and had a total cholesterol greater than 280. The patient was able to complete a carotid Doppler study which revealed no significant carotid artery stenosis. He underwent an echocardiogram which showed an ejection fraction between 60-65% with mild tricuspid regurgitation. The patient was able to complete MRI of the brain today. His MRI of the brain results indicate evidence of a subacute infarct in the left simin. Punctate white matter changes were noted reflecting small vessel disease as well. We did review the results of the MRI of the brain today with the patient. Patient is being considered for discharge home today. He is to be considered for possible ALEXANDRE procedure which may be arranged for him as outpatient. Patient may follow-up in the outpatient neurology clinic in 2-3 weeks. Objective - Vital Signs Vital signs: Vital Signs Temp 97.8 F 07/09/17 08:00 Pulse 69 07/09/17 12:00 Resp 15 07/09/17 12:00 BP 155/84 07/09/17 12:00 Pulse Ox 95 07/09/17 12:00 Intake & Output 07/08/17 07/09/17 07/09/17 18:59 06:59 18:59 Intake Total 1640 360 Output Total 600 Balance 1040 360 Weight 74.9 kg Intake: Intake, IV Titration 1400 Amount Sodium Chloride 0.9% 1, 1400 000 ml @ 100 mls/hr IV . Q10H [facility] Rx#:[id number] Oral 240 360 Output: Urine 600 Other: Voiding Method Toilet Toilet Urinal Urinal # Voids 1 1 1 # Bowel Movements 0 - Exam Physical examination: PHYSICAL EXAMINATION: Patient is resting comfortably in bed. VITAL SIGNS: Blood pressure is [155/84]. Heart rate is [69]. Respiration is [15] . Temperature is [97.7]. HEENT: Head is atraumatic, neck is supple, there were no carotid bruits. CHEST: Lungs are clear to auscultation and percussion. CARDIAC: S1, S2 normal rate and rhythm. There is no murmur. ABDOMEN: Soft and nontender. Bowel sounds are present. EXTREMITIES: There is no pedal edema. Peripheral pulses are present. Neurological examination: Patient has a nonfocal neurological examination today. - Labs CBC & Chem 7: 07/09/17 06:12 07/09/17 06:12 Labs: Abnormal Lab Results - Last 24 Hours (Table) 07/09/17 Range/Units 06:12 Glucose 101 H (74-99) mg/dL Total Protein 6.2 L (6.3-8.2) g/dL Assessment and Plan (1) TIA (transient ischemic attack) Status: Acute Code(s): G45.9 - TRANSIENT CEREBRAL ISCHEMIC ATTACK, UNSPECIFIED SNOMED Code(s): 404056437 (2) Expressive aphasia Status: Acute Code(s): R47.01 - APHASIA SNOMED Code(s): 248709447 (3) Hyperlipidemia Status: Acute Code(s): E78.5 - HYPERLIPIDEMIA, UNSPECIFIED SNOMED Code(s): 88648544 (4) Hypertension Status: Acute Code(s): I10 - ESSENTIAL (PRIMARY) HYPERTENSION SNOMED Code(s) : 24839708 Plan: This patient is a pleasant 72-year-old male who was admitted yesterday with episode of dysarthric speech. He was able to complete MRI of the brain today which was reviewed and reveals evidence of a subacute infarction in the left simin. Patient is advised to continue on aspirin therapy 325 mg daily for secondary stroke prevention. His stroke risk factors include hypertension and hyperlipidemia. His most recent total cholesterol was 184. We suggest he continue to follow closely with his primary care physician for monitoring of his lipid panel as well as his blood pressure readings. He is being considered for discharge home today and may be scheduled for ALEXANDRE procedures outpatient. He may follow-up in the outpatient neurology clinic in 2-3 weeks. So overall prognosis at this time remains fair.
== END 2017-07-09 14:40 | disposition home or self-care (01) | DRG 66 ==
LOC: EC 18:59 → 6SEL 21:05
PROVIDERS: ADMIT Internal Medicine; ATTEND Internal Medicine
DX: I63.9 Cerebral infarction, unspecified (principal); R47.01 Aphasia; I07.1 Rheumatic tricuspid insufficiency; I11.9 Hypertensive heart disease without heart failure; R29.810 Facial weakness; R47.1 Dysarthria and anarthria; R40.2362 Coma scale, best motor response, obeys commands, at arrival to emergency department; R40.2142 Coma scale, eyes open, spontaneous, at arrival to emergency department; R40.2252 Coma scale, best verbal response, oriented, at arrival to emergency department; R29.701 NIHSS score 1; E78.5 Hyperlipidemia, unspecified; I73.9 Peripheral vascular disease, unspecified; M19.91 Primary osteoarthritis, unspecified site; N42.9 Disorder of prostate, unspecified; H40.9 Unspecified glaucoma; K57.90 Diverticulosis of intestine, part unspecified, without perforation or abscess without bleeding; K64.9 Unspecified hemorrhoids; J32.1 Chronic frontal sinusitis; Z79.899 Other long term (current) drug therapy; Z86.79 Personal history of other diseases of the circulatory system; Z85.828 Personal history of other malignant neoplasm of skin; Z87.891 Personal history of nicotine dependence; Z72.89 Other problems related to lifestyle; Z91.030 Bee allergy status; Z82.49 Family history of ischemic heart disease and other diseases of the circulatory system; Z80.6 Family history of leukemia
CPT/HCPCS: 36415; 70450; 70553; 71046; 80048; 80053; 80061; 82550; 82553; 83090; 84484; 85025; 85610; 85652; 85730; 93005; 93306; 93880; 99291

== ENCOUNTER → 2017-07-20 | Outpatient (CLI) | payer MEDICARE | END | disposition home or self-care (01) | LOC: RADECHMAIN 11:28 | PROVIDERS: ATTEND Internal Medicine | DX: I47.1 Supraventricular tachycardia (principal); I49.3 Ventricular premature depolarization | CPT/HCPCS: 93270; 93271 ==

== ENCOUNTER → 2020-05-08 | Outpatient (CLI) | payer MEDICARE ==
[2020-05-08 12:57] LABS: Appearance,Urine Clear (Clear); Bilirubin,Urine Negative (Negative); Blood,Urine Negative (Negative); Color,Urine Yellow; Glucose,Urine (UA) Negative (Negative); Ketones,Urine Negative (Negative); Leukocyte Esterase,Urine Negative (Negative); Nitrite,Urine Negative (Negative); PH, Urine 5.5 (5.0-8.0); Protein,Urine Trace (Negative); Specific Gravity,Urine 1.024 (1.001-1.035); Urobilinogen,Urine <2.0 mg/dL (<2.0)
[2020-05-08 15:14] LABS: WBC 7.69 X 10*3/uL (4.50-10.00)
[2020-05-08 15:15] LABS: HCT 41.8 % (39.6-50.0); MCH 30.6 pg (27.0-32.0); MCHC 33.5 g/dL (32.0-37.0); MCV 91.5 fL (80.0-97.0); Platelet Count 338 X 10*3/uL (140-440); RBC 4.57 X 10*6/uL (4.40-5.60); RDW 12.1 % (11.5-14.5)
[2020-05-08 15:27] LABS: INR 0.91 (0.90-1.11); Partial Thromboplastin Time 28.8 sec (23.5-31.0)
[2020-05-09 02:17] LABS: African American GFR (CKD) 86.2 (60.0-200.0); Albumin 4.1 g/dL (3.80-4.90); Albumin/Globulin Ratio 1.71 (1.60-3.17); Anion Gap 10.7 mmol/L (4.00-12.00); Calcium 9.5 mg/dL (8.7-10.3); Carbon Dioxide 26.3 mmol/L (21.6-31.8); Globulin 2.4 g/dL (1.6-3.3); Non-African American GFR(CKD) 74.3 (60.0-200.0); Potassium 4.2 mmol/L (3.5-5.5); Total Bilirubin 0.8 mg/dL (0.3-1.2); Total Protein 6.5 g/dL (6.2-8.2)
== END | disposition home or self-care (01) ==
LOC: LABWHC1 09:06
PROVIDERS: ATTEND Orthopaedic Surgery
DX: Z01.818 Encounter for other preprocedural examination (principal); Z01.812 Encounter for preprocedural laboratory examination; M13.859 Other specified arthritis, unspecified hip
CPT/HCPCS: 36415; 80053; 81003; 85027; 85610; 85730; 86850; 86900; 86901; 87070

== ENCOUNTER 2020-05-20 07:38 | Day surgery (SDC) | payer MEDICARE ==
[2020-05-16 10:43] VITALS: BMI 22.1
[~2020-05-20 07:38] MED LIST: ACETAMINOPHEN TAB 500 MG TAB PO PRN; DEXAMETHASONE SOD PHOSPHATE 4 MG/ML 1 ML VIAL IV ONE; GABAPENTIN 300 MG CAP PO PRN; HYDROcodone/APAP 7.5-325MG 1 EACH TAB PO PRN; HYDROmorphone 0.2 MG/1 ML SYRINGE IVP PRN; HYDROmorphone 0.5 MG/0.5 ML SYRINGE IVP PRN; LACTATED RINGERS 1,000 ML IV SCH; LIDOCAINE 1% (10MG/ML) FOR IV START INTRADERMA PRN; MELOXICAM 7.5 MG TAB PO PRN; MIDAZOLAM 2 MG/2 ML VIAL IV PRN; NALOXONE 0.4 MG/ML 1 ML VIAL IV PRN; ONDANSETRON 4 MG/2 ML VIAL IVP ONE; ONDANSETRON 4 MG/2 ML VIAL IVP PRN; SODIUM CHLORIDE 0.9% 1,000 ML IV SCH; TRANEXAMIC ACID 1,000 MG in SODIUM CHLORIDE 0.9% 100 ML IVPB PRN
[2020-05-20] MEDS ORDERED: LACTATED RINGERS 1,000 ML IV ONE (08:17)
[2020-05-20] MEDS ORDERED: NEOSTIGMINE 1 MG/ML 10 ML VIAL ONE (09:15)
[2020-05-20] MEDS ORDERED: GLYCOPYRROLATE 0.2 MG/ML 2 ML VIAL ONE (09:15)
[2020-05-20] MEDS ORDERED: PROPOFOL 10 MG/ML 20 ML VIAL IV ONE (09:15)
[2020-05-20] MEDS ORDERED: HYDROmorphone (PF) 1 MG/ML ONE (09:15)
[2020-05-20] MEDS ORDERED: fentaNYL (PF) 50 MCG/ML 2 ML AMP ONE (09:15)
[2020-05-20] MEDS ORDERED: ROCURONIUM 10 MG/ML (5 ML VIAL) IV ONE (09:15)
[2020-05-20] MEDS ORDERED: SODIUM CHLORIDE 0.9% IRRIG 1,000 ML BTL IRRIGATION ONE (09:15)
[2020-05-20] MEDS ORDERED: MIDAZOLAM 2 MG/2 ML VIAL ONE (09:15)
[2020-05-20] MEDS ORDERED: HEPARIN SODIUM,PORCINE 10,000 UNIT/ML 1 ML VIAL ONE (09:15)
[2020-05-20] MEDS ORDERED: PHENYLEPHRINE-0.9% NACL SYG 1,000 MCG/10 ML SYRINGE ONE (09:15)
[2020-05-20] MEDS ORDERED: SUCCINYLCHOLINE CHLORIDE 100 MG/5 ML SYR IV ONE (09:15)
[2020-05-20] MEDS ORDERED: LIDOCAINE 1% INJ 10MG/ML (20 ML MDV) ONE (09:15)
[2020-05-20] MEDS ORDERED: ceFAZolin 3,000 MG in SODIUM CHLORIDE 0.9% IRRIGATIO 3,000 ML IRRIGATION ONE (09:19)
[2020-05-20] MEDS: ROPIVACAINE/EPI/CLONIDINE/KET 50 ML SYRINGE MISCELLANE PRN ×2 (09:43→10:26)
--- NOTE | 2020-05-20 10:31 | P.OP ---
Date of Procedure: 05/20/20 Preoperative Diagnosis: Severe osteoarthritis right hip Postoperative Diagnosis: Severe osteoarthritis right hip Procedure(s) Performed: Right total hip arthroplasty with a direct anterior approach Implants: [employer] Polarstem standard size 5 [employer] R3, 3 hole hemispherical acetabular shell, 52 mm [employer] Reflection 6.5 mm cancellus screw, 20 mm 2 [employer] R3, XLPE 20 acetabular liner [employer] Oxinium femoral head 36 m, +4 All components were press-fit. The articulation is Oxinium on polyethylene. Anesthesia: GETA Surgeon: Michael Aquino Foster Care Worker #1: Barbara Artis Estimated Blood Loss (ml): 100 Pathology: other (Femoral head) Condition: stable Disposition: PACU Indications for Procedure: After failure of conservative treatment we discussed the surgical and nonsurgical treatment options at length. Patient wishes to proceed with a total hip arthroplasty with a direct anterior approach. Complications specific to this procedure were discussed at length, including but not limited to infection, leg length discrepancy, dislocation, nerve injury, and fracture. Covid-19 was also discussed at length with the patient, and they are aware of the current policies and procedures. The patient was given the option of delaying surgery, but they elect to proceed knowing these risks. Patient is aware of all these complications and informed consent was obtained Operative Findings: The operative findings are consistent with severe osteoarthritis of the right hip Description of Procedure: Patient was seen and evaluated in the preoperative area and the consent was reviewed. The operative site was marked with a skin marker. The patient was then brought to the operating room and given preoperative antibiotics intravenously. 1 g of Tranexamic acid was also given intravenously. A general anesthetic was administered by the anesthesia department. The patient was then placed on the [place] table with the bony prominences well-padded. The hip area was then prepped with a ChloraPrep solution and draped in the usual sterile fashion. A universal timeout was then performed, which confirmed the patient's name, surgical site, ALLERGIES, and procedure being performed on the consent. Next the incision site was located at 1 cm distal to the anterior superior iliac spine along the flexion crease of the right hip. The skin and subcutaneous tissues were sharply incised. Incision was carefully dissected down to the fascia overlying the tensor fascia venancio muscle. This fascia was then incised in line with the incision. Care was taken to stay laterally in order to avoid injuring the lateral femoral cutaneous nerve. Next, using blunt finger dissection, the tensor fascia venancio muscle was dissected off its investing fascia. The muscle was then carefully retracted laterally with a cobra retractor over the lateral neck of the femur. Next, the circumflex vessels were identified and cauterized using the AquaMantis device. The anterior hip capsule was then exposed. The capsule was then opened and an inverted T fashion. Cobra retractors were then placed intracapsularly. The retractors were maintained intracapsular throughout the procedure. The proximal femur was then visualized. A small amount of traction was placed on the leg. The femoral neck was then osteotomized appropriate level above the lesser trochanter. A small wedge of bone was then removed from the remaining femoral head. Next, using a corkscrew the femoral head was removed from the acetabulum. On gross visual inspection, the femoral head had complete loss of articular cartilage and multiple periarticular osteophytes. The femoral head was then measured. Attention was then turned to the acetabulum. The acetabulum was exposed and any remaining labrum was excised. Sequential reaming of the acetabulum was performed using fluoroscopic guidance until there was a good bed of bleeding cancellus bone. When the appropriate size was reached, a trial was then placed. The position and fit of the trial was checked with fluoroscopy. The trial was then removed. Then, using fluoroscopic guidance, the final implant was impacted at 20 of anteversion and 40 of abduction, and fully seated in the acetabulum. 2 screws were then placed in the acetabulum. Again fluoroscopy was used to check position of the screws. Next, the liner was then impacted, with a 20 elevated liner located in the anterior superior quadrant. Component locking was confirmed. Attention was then directed to the femur. With the aid of the [place] table, the femur was externally rotated to approximately 130, extended, and adducted under the opposite leg. A side hook was then placed under the proximal femur, and the side hook elevator was used to elevate the proximal femur while releasing the capsule. Retractors were then placed. A capsular release was performed, as well as a release of the conjoined tendon, which afforded excellent vi sualization of the proximal femur. Next, a box osteotome was used to lateralize the proximal femur. A coke handling supervisor was then used to locate the femoral canal. Sequential broaching was then performed with appropriate size which afforded excellent fixation in the proximal femur. A trial was then placed with appropriate head and neck, and the hip was gently reduced with the aid of the [place] table. Fluoroscopy was then used to check position of the components, as well as to ensure equal leg lengths. The hip was then gently dislocated and the trials were then removed. Final implants were then impacted and the hip was again reduced. Final fluoroscopic x-rays confirmed that the components were in anatomic position, as well as equal leg lengths. The hip was also taken through range of motion, and found to be stable. The hip was then copiously irrigated with antibiotic solution with pulsatile lavage. The hip was then irrigated with Irrisept solution. The soft tissues were then injected with a ropivacaine solution, which consisted of 246.25 mg of ropivacaine, 0.5 mg of epinephrine, 30 mg of Toradol, 80 g of clonidine, and 48.45 mL of sterile water, for a total of 100 mL of fluid injected. A second dose of 1 g of Tranexamic acid was also given intravenously. Any blood collected by Cell Saver was then returned to the patient at this time. The fascia was then closed with 2-0 strata fix suture. The subcutaneous tissue was closed with 3-0 Vicryl. The subcuticular tissue was closed with 3-0 strata fix suture. The skin was then closed with Exofin skin glue. After the glue and dried, and Optifoam silver impregnated dressing was applied. The patient was then transferred to the recovery room in stable condition. The day care assistant ERIC Hale was required due to the complexity of surgery, and the need for skilled surgical technician for positioning, draping, exposure, retraction, and closure of the wound.
--- NOTE | 2020-05-20 10:48 | FL ---
EXAMINATION TYPE: FL guidance operating room, XR Hip Limited RT DATE OF EXAM: 05/20/2020 COMPARISON: NONE HISTORY: 74-year-old male anterior right hip replacement FINDINGS: 2 intraoperative images demonstrating right hip total arthroplasty. FLUOROSCOPY Fluoroscopy time of 25 seconds was used during right hip total arthroplasty. 2 image/s document/s th e procedure. IMPRESSION: Intraoperative fluoroscopy as above.
[2020-05-20 10:57] VITALS: RESP 16; TEMP 97.2
--- NOTE | 2020-05-20 11:13 | XR ---
EXAMINATION TYPE: XR Hip Limited RT DATE OF EXAM: 05/20/2020 Comparison: None Clinical History: 74-year-old male Status post hip surgery, assess surgical alignment Findings: Initial placement of right hip total arthroplasty. Both acetabular cup and femoral stem components of the prosthesis are well seated without periprosthetic fracture. Alignment grossly anatomic. Soft tis qi air related to recent operation. Extensive metastatic calcifications are present throughout. Impression: Uncomplicated post operative appearance right hip total arthroplasty.
[2020-05-20 13:35] VITALS: BP 122/70; PULSE 98
== END 2020-05-20 16:03 | disposition home health service (06) ==
LOC: OR 07:38
PROVIDERS: ATTEND Orthopaedic Surgery
DX: M16.11 Unilateral primary osteoarthritis, right hip (principal); I10 Essential (primary) hypertension; E78.2 Mixed hyperlipidemia; H40.9 Unspecified glaucoma; Z79.82 Long term (current) use of aspirin; Z79.899 Other long term (current) drug therapy; Z82.49 Family history of ischemic heart disease and other diseases of the circulatory system; Z87.891 Personal history of nicotine dependence; Z86.73 Personal history of transient ischemic attack (TIA), and cerebral infarction without residual deficits
CPT/HCPCS: 97110; 97161; 86891; 88300; 73501; 27130; C1776; J2250; J1644; J1100; J2710; J0690 ×2; J2405; J2001; J3010; J1170; J2370; J0330; J2704; 86850; 86900; 86901

== ENCOUNTER → 2020-06-23 | Outpatient (CLI) | payer MEDICARE ==
--- NOTE | 2020-06-23 14:11 | XR ---
EXAMINATION TYPE: XR chest 2V DATE OF EXAM: 06/23/2020 COMPARISON: Chest x-ray July 07, 2017 HISTORY: Weight loss. TECHNIQUE: Frontal and lateral views of the chest are obtained. FINDINGS: There is no new suspicious focal air space opacity, pleural effusion, or pneumothorax seen . The cardiac silhouette size remains within normal limits. The osseous structures are intact. IMPRESSION: No acute cardiopulmonary process. No significant change from prior.
== END | disposition home or self-care (01) ==
LOC: RADXRMAIN 13:46
PROVIDERS: ATTEND Internal Medicine
DX: R63.4 Abnormal weight loss (principal)
CPT/HCPCS: 71046

== ENCOUNTER 2022-06-20 10:25 | Emergency (ER) | payer MEDICARE ==
[2022-06-20 10:36] VITALS: RESP 16; TEMP 98.2
--- NOTE | 2022-06-20 10:52 | ED ---
General Adult HPI - General Chief complaint: Arrhythmia/Palpitations Stated complaint: AFIB Time Seen by Provider: 06/20/22 10:41 Source: patient, RN notes reviewed Mode of arrival: ambulatory Limitations: no limitations - History of Present Illness Initial comments: Patient is a pleasant 76-year-old male presenting to the emergency Department with palpitations. Onset of symptoms was a couple of hours ago. Patient states symptoms lasted between 1 and 2 hours. Patient did use his Cardiolite machine that said possible atrial fibrillation with a rate up to 140 or 150. Patient does have history of atrial fibrillation. As per his credit verifier patient is only on aspirin at this time. Patient currently symptom-free. No chest pain. No dyspnea. - Related Data Home Medications Medication Instructions Recorded Confirmed Latanoprost Ophth [Xalatan 0.005%] 1 drops LEFT EYE HS 12/28/13 05/16/20 Metoprolol Succinate [Toprol XL] 25 mg PO HS 12/28/13 05/16/20 Dorzolamide/Timolol/Pf [Cosopt Pf 1 drop LEFT EYE BID 07/07/17 05/16/20 2%/0.5% Ophth Droperette] Docusate Sodium [Dok] 100 mg PO BID 05/16/20 05/16/20 HYDROcodone/APAP 5-325MG [[place] 2 tab PO Q12H PRN 05/16/20 05/16/20 5-325] Ibuprofen 800 mg PO Q8H PRN 05/16/20 05/16/20 Losartan [Cozaar] 50 mg PO HS 05/16/20 05/16/20 Netarsudil Mesylate [Rhopressa] 1 drop LEFT EYE HS 05/16/20 05/16/20 Rosuvastatin [Crestor] 20 mg PO HS 05/16/20 05/16/20 Previous Rx's Medication Instructions Recorded Aspirin 325 mg PO DAILY tab 07/09/17 amLODIPine [Norvasc] 10 mg PO DAILY #0 07/09/17 Aspirin 325 mg PO BID #60 tab 05/20/20 Celecoxib [CeleBREX] 200 mg PO DAILY 5 Days #5 capsule 05/20/20 Gabapentin 300 mg PO BID 5 Days #10 cap 05/20/20 HYDROcodone/APAP 7.5-325MG [[place] 1 - 2 tab PO Q6H PRN #32 tab 05/20/20 7.5-325] Ondansetron Odt [Zofran Odt] 1 tab PO Q8HR PRN #10 tab 05/20/20 Sennosides [Senokot] 2 tab PO DAILY PRN #60 tablet 05/20/20 Allergies Allergy/AdvReac Type Severity Reaction Status Date / Time venom-honey bee Allergy Severe Anaphylaxis Verified 06/20/22 10:37 [bee venom (honey bee)] Review of Systems ROS Statement: Those systems with pertinent positive or pertinent negative responses have been documented in the HPI. ROS Other: All systems not noted in ROS Statement are negative. Constitutional: Denies: fever Eyes: Denies: eye pain ENT: Denies: ear pain Respiratory: Denies: cough Cardiovascular: Reports: as per HPI, palpitations. Denies: chest pain Endocrine: Denies: fatigue Gastrointestinal: Denies: abdominal pain Genitourinary: Denies: dysuria Musculoskeletal: Denies: back pain Skin: Denies: rash Neurological: Denies: weakness Past Medical History Past Medical History: Atrial Fibrillation, Cancer, GI Bleed, Hyperlipidemia, Hypertension, Osteoarthritis (OA), Prostate Disorder Additional Past Medical History / Comment(s): A-fib past hx,glaucoma, cataracts. 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 Hemorrhoids sometimes bleed History of Any Multi-Drug Resistant Organisms: None Reported Past Surgical History: Hernia Repair Additional Past Surgical History / Comment(s): Lt & Right inguinal hernia repair, colonoscpy/benign polys removed, mary laser eye sx for glaucoma, skin cancer removed from neck Past Anesthesia/Blood Transfusion Reactions: No Reported Reaction Past Psychological History: No Psychological Hx Reported Smoking Status: Former smoker Past Alcohol Use History: Daily Past Drug Use History: None Reported - Past Family History Father Family Medical History: Myocardial Infarction ([place]) Mother Family Medical History: No Reported History Additional Family Medical History / Comment(s): from old age Sister(s) Family Medical History: Cancer Daughter(s) Family Medical History: No Reported History General Exam Limitations: no limitations General appearance: alert, in no apparent distress Head exam: Present: normocephalic Eye exam: Present: normal appearance Neck exam: Present: normal inspection Respiratory exam: Present: normal lung sounds bilaterally Cardiovascular Exam: Present: regular rate, normal rhythm, normal heart sounds Expanded Peripheral pulses: 2+: Radial (R), Radial (L) GI/Abdominal exam: Present: soft. Absent: tenderness Extremities exam: Present: normal inspection. Absent: pedal edema, calf tendern ess Neurological exam: Present: alert Psychiatric exam: Present: normal affect, normal mood Skin exam: Present: normal color Course Vital Signs 06/20/22 06/20/22 10:31 11:45 Temperature 98.2 F Pulse Rate 99 80 Respiratory 16 16 Rate Blood Pressure 154/93 125/80 O2 Sat by Pulse 95 97 Oximetry EKG Findings - EKG Results: EKG: interpreted by ERMD, sinus rhythm, normal axis, normal QRS, normal ST/T EKG shows: tachycardia Medical Decision Making - Medical Decision Making Was pt. sent in by a medical professional or institution (ERIC Alford, MAGAZINE WORKER, urgent care, hospital, or [facility]...) When possible be specific @ -No Did you speak to anyone other than the patient for history (EMS, parent, family, police, friend...)? What history was obtained from this source @ -No Did you review nursing and triage notes (agree or disagree)? Why? @ -I reviewed and agree with nursing and triage notes Were old charts reviewed (outside hosp., previous admission, EMS record, old EKG, old radiological studies, urgent care reports/EKG's, [facility] records)? Report findings @ -No old charts were reviewed Differential Diagnosis (chest pain, altered mental status, abdominal pain women, abdominal pain men, vaginal bleeding, weakness, fever, dyspnea, syncope, headache, dizziness, GI bleed, back pain, seizure, CVA, palpatations, mental health)? @ - EKG interpreted by me (3pts min.). @ -As above X-rays interpreted by me (1pt min.). @ -Chest x-ray shows no acute process CT interpreted by me (1pt min.). @ -None done U/S interpreted by me (1pt. min.). @ -None done What testing was considered but not performed or refused? (CT, X-rays, U/S, labs)? Why? @ -None What meds were considered but not given or refused? Why? @ -None Did you discuss the management of the patient with other professionals (professionals i.e. Dr., PA, MAGAZINE WORKER, lab, RT, psych nurse, psychiatric social worker, tankage grinder operator, teacher, general service officer, case worker)? Give summary @ -No Was smoking cessation discussed for >3mins.? @ -No Was critical care preformed (if so, how long)? @ -No Were there social determinants of health that impacted care today? How? (Homelessness, low income, unemployed, alcoholism, drug addiction, transportation, low edu. Level, literacy, decrease access to med. care, senior care, rehab)? @ -No Was there de-escalation of care discussed even if they declined (Discuss DNR or withdrawal of care, Hospice)? DNR status @ -No What co-morbidities impacted this encounter? (DM, HTN, Smoking, COPD, CAD, Cancer, CVA, ARF, Chemo, Hep., AIDS, mental health diagnosis, sleep apnea, morbid obesity)? @ -None Was patient admitted / discharged? Hospital course, mention meds given and route, prescriptions, significant lab abnormalities, going to OR and other pertinent info. @ -Patient reevaluated and resting comfortably in bed. Patient remained symptom-free. Heart rate normal, normal sinus rhythm. Patient for discharge and follow-up. Undiagnosed new problem with uncertain prognosis? @ -No Drug Therapy requiring intensive monitoring for toxicity (Heparin, Nitro, Insulin, Cardizem)? @ -No Were any procedures done? @ -No Diagnosis/symptom? @ -Palpitations Acute, or Chronic, or Acute on Chronic? @ -Acute Uncomplicated (without systemic symptoms) or Complicated (systemic symptoms)? @ -default Side effects of treatment? @ -No Exacerbation, Progression, or Severe Exacerbation? @ -No Poses a threat to life or bodily function? How? (Chest pain, [place], [place], pneumonia, PE, COPD, DKA, ARF, appy, cholecystitis, CVA, Diverticulitis, Homicidal, Su[place] mica[place], threat to staff... and all critical care pts) @ -No - Lab Data Result diagrams: 06/20/22 10:57 06/20/22 10:57 Lab Results 06/20/22 06/20/22 06/20/22 Range/Units 10:57 10:57 10:57 WBC 4.6 (3.8-10.6) k/uL RBC 4.97 (4.30-5.90) m/uL Hgb 15.6 (13.0-17.5) gm/dL Hct 44.6 (39.0-53.0) % MCV 89.7 (80.0-100.0) fL MCH 31.4 (25.0-35.0) pg MCHC 35.0 (31.0-37.0) g/dL RDW 13.2 (11.5-15.5) % Plt Count 209 (150-450) k/uL MPV 6.8 Neutrophils % (Manual) 65 % Lymphocytes % (Manual) 20 % Monocytes % (Manual) 14 % Basophils % (Manual) 1 % Neutrophils # (Manual) 2.99 (1.3-7.7) k/uL Lymphocytes # (Manual) 0.92 L (1.0-4.8) k/uL Monocytes # (Manual) 0.64 (0-1.0) k/uL Basophils # (Manual) 0.05 (0-0.2) k/uL Nucleated RBCs 0 (0-0) /100 WBC Manual Slide Review Performed RBC Morphology Normal PT 9.8 (9.0-12.0) sec INR 0.9 (<1.2) APTT 22.7 (22.0-30.0) sec Sodium 135 L (137-145) mmol/L Potassium 4.2 (3.5-5.1) mmol/L Chloride 103 (98-107) mmol/L Carbon Dioxide 26 (22-30) mmol/L Anion Gap 6 mmol/L BUN 16 (9-20) mg/dL Creatinine 0.68 (0.66-1.25) mg/dL Est GFR (CKD-EPI)AfAm >90 (>60 ml/min/1.73 sqM) Est GFR (CKD-EPI)NonAf >90 (>60 ml/min/1.73 sqM) Glucose 95 (74-99) mg/dL Calcium 8.3 L (8.4-10.2) mg/dL Magnesium 2.0 (1.6-2.3) mg/dL Total Bilirubin 1.1 (0.2-1.3) mg/dL AST 25 (17-59) U/L ALT 21 (4-49) U/L Alkaline Phosphatase 76 (38-126) U/L Total Protein 6.8 (6.3-8.2) g/dL Albumin 3.8 (3.5-5.0) g/dL TSH 1.560 (0.465-4.680) mIU/L Free T4 0.96 (0.78-2.19) ng/dL Free T3 pg/mL 3.7 (2.8-5.3) pg/ml Disposition Clinical Impression: Palpitations, Tachycardia Disposition: HOME SELF-CARE Condition: Stable Instructions (If sedation given, give patient instructions): Heart Palpitations (ED), A-fib (Atrial Fibrillation) (ED) Additional Instructions: Please do follow-up with primary care physician in the next day or 2 for recheck. Please follow-up with your credit verifier within the next week. Return for increased heart rate, difficult to breathing, chest pain, worsening or changing symptoms or other concerns. Is patient prescribed a controlled substance at d/c from ED?: No Referrals: Georgette Leo MD [Primary Care Provider] - 1-2 days Time of Disposition: 12:27
--- NOTE | 2022-06-20 11:08 | XR ---
EXAMINATION TYPE: XR chest 2V DATE OF EXAM: 06/20/2022 COMPARISON: Chest x-ray 2 years ago HISTORY: Dysrhythmia. TECHNIQUE: Frontal and lateral views of the chest are obtained. FINDINGS: There is no suspicious focal air space opacity, pleural effusion, or pneumothorax seen. T he cardiac silhouette size is stable and within normal limits. The osseous structures are intact. IMPRESSION: No acute process. No significant change from prior.
[2022-06-20 11:16] LABS: ALT 21 U/L (4-49); AST 25 U/L (17-59); African American GFR (CKD) >90 (>60 ml/min/1.73 sqM); Albumin 3.8 g/dL (3.5-5.0); Alkaline Phosphatase 76 U/L (38-126); Anion Gap 6 mmol/L; Blood Urea Nitrogen 16 mg/dL (9-20); Calcium 8.3 mg/dL (8.4-10.2); Carbon Dioxide 26 mmol/L (22-30); Chloride 103 mmol/L (98-107); Glucose 95 mg/dL (74-99); Non-African American GFR(CKD) >90 (>60 ml/min/1.73 sqM); Potassium 4.2 mmol/L (3.5-5.1); Sodium 135 mmol/L (137-145); Total Bilirubin 1.1 mg/dL (0.2-1.3); Total Protein 6.8 g/dL (6.3-8.2)
[2022-06-20 11:18] LABS: HCT 44.6 % (39.0-53.0); HGB 15.6 gm/dL (13.0-17.5); MCH 31.4 pg (25.0-35.0); MCV 89.7 fL (80.0-100.0); Mean Platelet Volume 6.8; Platelet Count 209 k/uL (150-450); RBC 4.97 m/uL (4.30-5.90); RDW 13.2 % (11.5-15.5); WBC 4.6 k/uL (3.8-10.6)
[2022-06-20 11:26] LABS: INR 0.9 (<1.2); Partial Thromboplastin Time 22.7 sec (22.0-30.0); Prothrombin Time 9.8 sec (9.0-12.0)
[2022-06-20 11:32] LABS: T4, Free (Free Thyroxine) 0.96 ng/dL (0.78-2.19)
[2022-06-20 11:47] VITALS: BP 125/80; PULSE 80
[2022-06-20 12:13] LABS: Basophils # (M) 0.05 k/uL (0-0.2); Lymphocytes # (M) 0.92 k/uL (1.0-4.8); Monocytes # (M) 0.64 k/uL (0-1.0); Neutrophils # (M) 2.99 k/uL (1.3-7.7); Neutrophils % (M) 65 %; Nucleated Red Blood Cells 0 /100 WBC (0-0); Total Cells Counted 100
[2022-06-20 12:14] LABS: RBC Morphology Normal
== END 2022-06-20 12:36 | disposition home or self-care (01) ==
LOC: EC 10:25
DX: R00.0 Tachycardia, unspecified (principal); I48.91 Unspecified atrial fibrillation; E78.5 Hyperlipidemia, unspecified; I10 Essential (primary) hypertension; M19.90 Unspecified osteoarthritis, unspecified site; Z87.891 Personal history of nicotine dependence; Z79.1 Long term (current) use of non-steroidal anti-inflammatories (NSAID); Z79.899 Other long term (current) drug therapy; Z91.030 Bee allergy status
CPT/HCPCS: 36415; 71046; 80053; 83735; 84439; 84443; 84481; 85025; 85610; 85730; 93005; 99285